=== PATIENT | female | born 1935 | race Caucasian/White ===

== ENCOUNTER 2018-10-08 16:38 | Observation (INO) ==
--- NOTE | 2018-10-08 17:44 | ED ---
HPI General Chief complaint: Eye Problems Stated complaint: dr costa/ eye pain Time Seen by Provider: 10/08/18 16:58 History of Present Illness HPI Narrative: 83 year old female with a past medical history of a-fib (not anticoagulated), Alzheimer's and skin cancer who presents to the ED for evaluation of right eyelid drooping and pain. Her symptoms started as a foreign body sensation in the right eye Friday that has progressed to a drooping lid last night. Her said he tried drops and tylenol but neither helped her symptoms. She denies any weakness, numbness/tingling, chest pain or shortness of breath. She was seen in a different hospital last night but left before getting the CT scan, unclear as to why. She is currently undergoing radiation therapy on a skin cancer on her right cheek. 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 is very adamant that the patient requires sedation or something to calm her down as she gets really anxious about CT scans of her head. Per report from the apron trimmer she also has had some ataxia. Related Data Home Medications Medication Instructions Recorded Confirmed Namenda 10/08/18 Allergies Allergy/AdvReac Type Severity Reaction Status Date / Time sulfamethoxazole Allergy Unknown unknown Verified 10/08/18 17:12 [From Bactrim] trimethoprim [From Bactrim] Allergy Unknown unknown Verified 10/08/18 17:12 Review of Systems ROS: all other systems reviewed are negative [facility] Medical History Medical History Afib (Acute) Alzheimers disease (Acute) Cancer of skin (Acute) Colorectal cancer (Acute) HTN (hypertension) (Acute) Social History Social History Substance History: No History of Abuse Smoking Status: Former smoker Tobacco Type: Cigarettes How Often Do You Have a Drink Containing Alcohol: 4 or more times a week Recent Travel in [facility] within the Last 8 Weeks: No Recent Out of Country Travel within the Last 8 Weeks: No Immunization History Tetanus Immunization: Unsure Exam Narrative Exam Narrative: GENERAL: Well-appearing in no distress. SKIN: Focused skin assessment warm/dry. Patient has what appears to be a skin lesion to the right cheek with erythema surrounding this lesion. HEAD: Atraumatic. Normocephalic. EYES: Pupils equal and round. No scleral icterus. No injection or drainage. Both pupils are dilated and did not respond currently (patient had her pupils dilated at the opthalmologist office). EOM appear to be intact. Patient does have drooping of the upper eyelid of the right eye ENT: No nasal bleeding or discharge. Mucous membranes pink and moist. Tongue is midline. No uvula deviation. NECK: Trachea midline. No JVD. CARDIOVASCULAR: Regular rate and rhythm. No murmur appreciated. RESPIRATORY: No accessory muscle use. Clear to auscultation. Breath sounds equal bilaterally. GASTROINTESTINAL: Abdomen soft, non-tender, nondistended. Hepatic and splenic margins not palpable. MUSCULOSKELETAL: No obvious deformities. No clubbing. No cyanosis. No edema. Full range of motion of the upper and lower extremities. 2+ pulses bilaterally. Patient does have slight ataxia noted with walking NEUROLOGICAL: Awake and alert. No obvious cranial nerve deficits. Motor grossly within normal limits. Normal speech. PSYCHIATRIC: Appropriate mood and affect; insight and judgment normal. Course Initial Documented Vital Signs Temperature 97.5 F L 10/08/18 16:50 Pulse Rate 68 10/08/18 16:50 Respiratory Rate 17 10/08/18 16:50 Blood Pressure 164/65 H 10/08/18 16:50 Pulse Oximetry 98 10/08/18 16:50 Last Documented Vital Signs Temperature 97.5 F L 10/08/18 16:50 Pulse Rate 65 10/08/18 20:09 Respiratory Rate 18 10/08/18 20:09 Blood Pressure 149/63 H 10/08/18 20:09 Pulse Oximetry 96 10/08/18 20:09 Medical Decision Making MDM Narrative Medical decision making narrative: 83 yo Female who presents to the ED for evaluation of right eye dilation as well as drooping of the eyelid. Patient was properly examined and was found to have signs and symptoms concerning for CVA. Labs and imaging were ordered. Labs and imaging that showed no sign of acute disease at this time. At this time patient will require further workup for possible CVA. She does have findings that are concerning for this. Fortunately patient is not a great historian has Alzheimer's and she had to be given Ativan to calm her down to get IV access as well as to get the CT scan. Case was discussed with my attending who agrees the patient should be admitted for further evaluation of possible CVA. Case discussed with Dr. Rapp who agrees admission to her service. Medical Screen Exam Complete: Yes Emergency Medical Condition: Yes Medical Records Medical records reviewed: Yes I reviewed the patient's medical records. Lab Data Lab results reviewed: Yes I reviewed the patient's lab results. Result diagrams: 10/08/18 18:14 10/08/18 18:14 Lab Results 10/08/18 10/08/18 10/08/18 Range/Units 18:14 18:14 18:14 WBC 11.1 H (4.0-11.0) th/mm3 RBC 4.01 (4.00-5.30) mil/mm3 Hgb 13.7 (11.6-15.3) gm/dL Hct 39.9 (35.0-46.0) % MCV 99.3 (80.0-100.0) fL MCH 34.1 H (27.0-34.0) pg MCHC 34.3 (32.0-36.0) % RDW 18.5 H (11.6-17.2) % Plt Count 215 (150-450) th/mm3 MPV 8.6 (7.0-11.0) fL Prelim Diff (Auto) Slide review pending Neut % (Auto) 66.5 (16.0-70.0) % Lymph % (Auto) 25.3 (9.0-44.0) % [place] % (Auto) 6.0 (0.0-8.0) % Eos % (Auto) 1.2 (0.0-4.0) % Baso % (Auto) 1.0 (0.0-2.0) % Neut # (Auto) 7.4 (1.8-7.7) th/mm3 Lymph # (Auto) 2.8 (1.0-4.8) th/mm3 [place] # (Auto) 0.7 (0.0-0.9) th/mm3 Eos # (Auto) 0.1 (0.0-0.4) th/mm3 Baso # (Auto) 0.1 (0.0-0.2) th/mm3 WBC Differential . Diff Scan Auto diff confirmed Differential Comment . Platelet Estimate Normal (Normal) Platelet Morphology Normal (Normal) Ovalocytes 1+ H (None) Keratocytes Occ H (None) PT 10.5 (9.8-11.6) sec INR 1.0 Ratio APTT 26.6 (23.4-31.7) sec Sodium 141 (136-145) meq/L Potassium 4.7 (3.5-5.1) meq/L Chloride 108 H (98-107) meq/L Carbon Dioxide 29.1 (21.0-32.0) meq/L Anion Gap 4 L (5-15) meq/L BUN 24 H (7-18) mg/dL Creatinine 1.18 H (0.50-1.00) mg/dL Estimated GFR 44 L (>89) mL/min Random Glucose 112 H (74-106) mg/dL Calcium 9.3 (8.5-10.1) mg/dL Total Bilirubin 0.6 (0.2-1.0) mg/dL AST 27 (15-37) U/L ALT 22 (10-53) U/L Alkaline Phosphatase 94 (45-117) U/L Troponin I (0.02-0.05) ng/mL Total Protein 7.7 (6.4-8.2) g/dL Albumin 4.1 (3.4-5.0) g/dL 10/08/18 Range/Units 18:14 WBC (4.0-11.0) th/mm3 RBC (4.00-5.30) mil/mm3 Hgb (11.6-15.3) gm/dL Hct (35.0-46.0) % MCV (80.0-100.0) fL MCH (27.0-34.0) pg MCHC (32.0-36.0) % RDW (11.6-17.2) % Plt Count (150-450) th/mm3 MPV (7.0-11.0) fL Prelim Diff (Auto) Neut % (Auto) (16.0-70.0) % Lymph % (Auto) (9.0-44.0) % [place] % (Auto) (0.0-8.0) % Eos % (Auto) (0.0-4.0) % Baso % (Auto) (0.0-2.0) % Neut # (Auto) (1.8-7.7) th/mm3 Lymph # (Auto) (1.0-4.8) th/mm3 [place] # (Auto) (0.0-0.9) th/mm3 Eos # (Auto) (0.0-0.4) th/mm3 Baso # (Auto) (0.0-0.2) th/mm3 WBC Differential Diff Scan Differential Comment Platelet Estimate (Normal) Platelet Morphology (Normal) Ovalocytes (None) Keratocytes (None) PT (9.8-11.6) sec INR Ratio APTT (23.4-31.7) sec Sodium (136-145) meq/L Potassium (3.5-5.1) meq/L Chloride (98-107) meq/L Carbon Dioxide (21.0-32.0) meq/L Anion Gap (5-15) meq/L BUN (7-18) mg/dL Creatinine (0.50-1.00) mg/dL Estimated GFR (>89) mL/min Random Glucose (74-106) mg/dL Calcium (8.5-10.1) mg/dL Total Bilirubin (0.2-1.0) mg/dL AST (15-37) U/L ALT (10-53) U/L Alkaline Phosphatase (45-117) U/L Troponin I Less than 0.02 L (0.02-0.05) ng/mL Total Protein (6.4-8.2) g/dL Albumin (3.4-5.0) g/dL Imaging Data Attestation: I personally reviewed and interpreted this imaging study as follows : Radiologist's impression: Head CT 10/08/18 17:12 CONCLUSION: 1. No acute intracranial abnormality. 2. Senescent changes with moderate periventricular ischemic white matter demyelination. . Chest X-Ray 10/08/18 18:16 CONCLUSION: 1. Mild diffuse interstitial prominence of unknown chronicity given lack of prior exams. This likely reflects senescent change. 2. Mild airspace disease at the left lung base, presumably atelectasis. Discharge Plan Discharge Order Discharge Orders: ED Use Only Admit Order (Routine); Ordered 10/08/18 Ordered By: Aaron Hu Physicians Team ED Provider: Hank Aragon ED Midlevel Provider: Aaron Hu Primary Care Provider: García Reaves Attending Provider: Najma Rapp Rxs /Orders / Referrals /Forms Prescriptions: No Action Namenda RF: 0 Discharge Interventions Interventions: Vital Signs Last Done: 10/08/18 20:09 Status ED Status: Admitted Observation Patient
--- NOTE | 2018-10-08 18:26 | CT ---
EXAM DATE: 10/08/2018 6:23 PM EST AGE/SEX: 83 years / Female INDICATIONS: Left facial and eye droop. Double vision. CLINICAL DATA: This is the patient's initial encounter. Patient reports that signs and symptoms have been present for 1 day and indicates a pain score of 0/10. MEDICAL/SURGICAL HISTORY: Alzheimer's disease. Carcinoma, rectal. Hypertension. A-fib. None. RADIATION DOSE: 56.35 CTDI (mGy) COMPARISON: No prior exams available for comparison. TECHNIQUE: CT of the head without contrast. Using automated exposure control and adjustment of the mA and/or kV according to patient size, radiation dose was kept as low as reasonably achievable to ob tain optimal diagnostic quality images. DICOM format image data is available electronically for revi ew and comparison. FINDINGS: Cerebrum: Prominent diffuse cerebral atrophy. The ventricles are normal for degree of atrophy. Moder ate periventricular white matter hypodensities. No evidence of midline shift, mass lesion, hemorrhage or acute infarction. No extraaxial fluid collections are seen. Posterior Fossa: The cerebellum and brainstem are intact. The 4th ventricle is midline. The cerebe llopontine angle is unremarkable. Extracranial: The visualized portion of the orbits is intact. Skull: The calvaria is intact. No evidence of skull fracture. CONCLUSION: 1. No acute intracranial abnormality. 2. Senescent changes with moderate periventricular ischemic white matter demyelination. . Electronically signed by: Zain Glez MD Board Certified Radiologist 10/08/2018 6:24 PM EST
[2018-10-08 18:32] LABS: Baso # (Auto) 0.1 th/mm3 (0.0-0.2); Eos # (Auto) 0.1 th/mm3 (0.0-0.4); Eos % (Auto) 1.2 % (0.0-4.0); Hematocrit 39.9 % (35.0-46.0); Hemoglobin 13.7 gm/dL (11.6-15.3); Lymph # (Auto) 2.8 th/mm3 (1.0-4.8); Lymph % (Auto) 25.3 % (9.0-44.0); Mean Corpuscular HGB Conc 34.3 % (32.0-36.0); Mean Corpuscular Hemoglobin 34.1 pg (27.0-34.0); Mean Corpuscular Volume 99.3 fL (80.0-100.0); Mean Platelet Volume 8.6 fL (7.0-11.0); Mono # (Auto) 0.7 th/mm3 (0.0-0.9); Neut # (Auto) 7.4 th/mm3 (1.8-7.7); Neut % (Auto) 66.5 % (16.0-70.0); Platelet Count 215 th/mm3 (150-450); Red Blood Count 4.01 mil/mm3 (4.00-5.30); Red Cell Distribution Width 18.5 % (11.6-17.2); White Blood Count 11.1 th/mm3 (4.0-11.0)
--- NOTE | 2018-10-08 18:37 | XR ---
EXAM DATE: 10/08/2018 6:26 PM EST AGE/SEX: 83 years / Female INDICATIONS: Chest pain. CLINICAL DATA: This is the patient's initial encounter. Patient reports that signs and symptoms have been present for 1 day and indicates a pain score of Nonresponsive. MEDICAL/SURGICAL HISTORY: Non-responsive. Non-responsive. COMPARISON: No prior exams available for comparison. FINDINGS: Mild diffuse interstitial prominence and mild patchy airspace disease at the left lung base. Cardiome diastinal contours are within normal limits given portable technique. Bony thorax is intact. CONCLUSION: 1. Mild diffuse interstitial prominence of unknown chronicity given lack of prior exams. This likely reflects senescent change. 2. Mild airspace disease at the left lung base, presumably atelectasis. Electronically signed by: Zain Glez MD Board Certified Radiologist 10/08/2018 6:35 PM EST
[2018-10-08 18:45] LABS: Activated Partial Thrombo Time 26.6 sec (23.4-31.7); Prothrombin Time 10.5 sec (9.8-11.6)
[2018-10-08 19:04] LABS: Alanine Aminotransferase 22 U/L (10-53)
[2018-10-08 19:05] LABS: Alkaline Phosphatase 94 U/L (45-117); Total Protein 7.7 g/dL (6.4-8.2)
[2018-10-08 19:07] LABS: Albumin 4.1 g/dL (3.4-5.0); Anion Gap 4 meq/L (5-15); Blood Urea Nitrogen 24 mg/dL (7-18); Calcium 9.3 mg/dL (8.5-10.1); Carbon Dioxide 29.1 meq/L (21.0-32.0); Chloride 108 meq/L (98-107); Glomerular Filtration Rate 44 mL/min (>89); Glucose,Random 112 mg/dL (74-106); Sodium 141 meq/L (136-145)
[2018-10-08 19:08] LABS: Aspartate Aminotransferase 27 U/L (15-37); Potassium 4.7 meq/L (3.5-5.1)
[2018-10-08 19:39] LABS: Ovalocytes 1+
[2018-10-08 19:40] LABS: Platelet Estimate Normal (Normal); Platelet Morphology Normal (Normal)
[2018-10-08] MEDS ORDERED: Insulin NovoLOG Aspart Correctional Sugar Inj SQ PRN (20:41)
[2018-10-08] MEDS ORDERED: Dextrose 50% in Water 50 ML Vial IV.PUSH PRN (20:41)
--- NOTE | 2018-10-08 20:51 | P.HPIM ---
History of Present Illness Primary Care Physician: García Jean Paul 83-year-old female with a past medical history significant for Alzheimer's dementia, hypertension and a history of colon cancer presents to the emergency department at the recommendation of her business liaison officer for right eye ptosis and visual changes. The patient is a poor historian however her is bedside who is her primary caregiver and he provides the history. He states that started Friday night she started to have drooping of the right eye. She complained of visual changes with blurry vision and double vision that is intermittent. He also reports she has been having gait disturbances and that she has been off balance since that time. She has no history of a fall. No slurred speech. There has been some mild increase in her baseline confusion. No facial droop or slurred speech. The patient denies any chest pain or shortness of breath. No abdominal pain. No nausea/vomiting/diarrhea. No fever /chills. Review of Systems Review of Systems: all other systems reviewed are negative [facility] Medical History Medical History Afib (Acute) Alzheimers disease (Acute) Cancer of skin (Acute) Colorectal cancer (Acute) HTN (hypertension) (Acute) Surgical History Surgical History History of colon surgery (Acute) Family History Family History Other Coronary artery disease Dementia Social History Social History Substance History: No History of Abuse Smoking Status: Former smoker Tobacco Type: Cigarettes How Often Do You Have a Drink Containing Alcohol: 4 or more times a week Recent Travel in [facility] within the Last 8 Weeks: No Recent Out of Country Travel within the Last 8 Weeks: No Immunization History Tetanus Immunization: Unsure Medications and Allergies Allergies Allergy/AdvReac Type Severity Reaction Status Date / Time sulfamethoxazole Allergy Unknown unknown Verified 10/08/18 17:12 [From Bactrim] trimethoprim [From Bactrim] Allergy Unknown unknown Verified 10/08/18 17:12 Home Medications Medication Instructions Recorded Confirmed Type Namenda 10/08/18 History Active Medications: Active Medications Aspirin (Aspirin Chew) 162 mg PO DAILY GINNY Dextrose (D50w Vial) 50 ml IV.PUSH UNSCH PRN PRN Reason: per Hypoglycemic Protocol Glucagon (Glucagon Inj) 1 mg OTHER UNSCH PRN PRN Reason: per Hypoglycemic Protocol Heparin Sodium (Porcine) (Heparin Inj) 5,000 units SQ Q12H [facility] Sodium Chloride (Ns Inj) 1,000 mls @ 70 mls/hr IV.CONT .[id number] [facility] Insulin Aspart (Novolog Insulin Correctional Sugar Inj) 0 unit SQ ACHS PRN; Protocol PRN Reason: Per Protocol Physical Exam Vital signs: Vital Signs 10/08/18 16:50 10/08/18 16:54 10/08/18 20:09 Temperature 97.5 F L Pulse Rate 68 65 65 Respiratory Rate 17 20 18 Blood Pressure 164/65 H 101/77 149/63 H Pulse Oximetry 98 100 96 Intake & Output 10/08/18 10/08/18 10/09/18 06:59 18:59 06:59 Weight 63.049 kg Narrative: Gen.: No acute distress Head: Normocephalic. Atraumatic. EENT: Pupils equal round and reactive to light. Nose without drainage. Airway intact. Throat without injection. Cardiovascular: Regular rate and rhythm. No murmurs, rubs or gallops. Respiratory: Lungs clear to auscultation bilaterally. No wheezes or rhonchi. Abdomen: Soft, nontender, nondistended. No peritoneal signs. Musculoskeletal: No gross deformities. No edema. Skin: No obvious rashes or erythema. Neuro: Right eye ptosis. Unable to ascertain visual rossi/acuity as patient status post Ativan dosing and unable to answer questions pertaining to her vision. Remainder of cranial nerves intact. Strength 5/5 throughout. Confusion which her states is baseline. Results Labs CBC & Chem 7: 10/08/18 18:14 10/08/18 18:[address] 10/08/18 17:12 CONCLUSION: 1. No acute intracranial abnormality. 2. Senescent changes with moderate periventricular ischemic white matter demyelination. . Chest X-Ray 10/08/18 18:16 CONCLUSION: 1. Mild diffuse interstitial prominence of unknown chronicity given lack of prior exams. This likely reflects senescent change. 2. Mild airspace disease at the left lung base, presumably atelectasis. Caprini VTE Risk Assessment Caprini VTE Risk Assessment: Moderate/High Risk (score >= 2) Caprini Risk Assessment Model: Point Value = 1 Point Value = 2 Point Value = 3 Point Value = 5 Age 41-60 Minor surgery BMI > 25 kg/m2 Swollen legs Varicose veins or History of unexplained or recurrent spontaneous Oral contraceptives or hormone replacement Sepsis (< 1 month) Serious lung disease, including pneumonia (< 1 month) Abnormal pulmonary function Acute myocardial infarction Congestive heart failure (< 1 month) History of inflammatory bowel disease Medical patient at bed rest Age 61-74 Arthroscopic surgery Major open surgery (> 45 min) Laparoscopic surgery (> 45 min) Malignancy Confined to bed (> 72 hours) Immobilizing plaster cast Central venous access Age >= 75 History of VTE Family history of VTE Factor V Leiden Prothrombin [id number] Lupus anticoagulant Anticardiolipin antibodies Elevated serum homocysteine Heparin-induced thrombocytopenia Other congenital or acquired thrombophilia Stroke (< 1 month) Elective arthroplasty Hip, pelvis, or leg fracture Acute spinal cord injury (< 1 month) Prophylaxis Regimen: Total Risk Factor Score Risk Level Prophylaxis Regimen 0-1 Low Early ambulation 2 Moderate Order ONE of the following: *Sequential Compression Device (SCD) *Heparin 5000 units SQ BID 3-4 Higher Order ONE of the following medications: *Heparin 5000 units SQ TID *Enoxaparin/Lovenox 40 mg SQ daily (WT < 150 kg, CrCl > 30 mL/min) *Enoxaparin/Lovenox 30 mg SQ daily (WT < 150 kg, CrCl > 10-29 mL/min) *Enoxaparin/Lovenox 30 mg SQ BID (WT < 150 kg, CrCl > 30 mL/min) AND/OR *Sequential Compression Device (SCD) 5 or more Highest Order ONE of the following medications: *Heparin 5000 units SQ TID (Preferred with Epidurals) *Enoxaparin/Lovenox 40 mg SQ daily (WT < 150 kg, CrCl > 30 mL/min) *Enoxaparin/Lovenox 30 mg SQ daily (WT < 150 kg, CrCl > 10-29 mL/min) *Enoxaparin/Lovenox 30 mg SQ BID (WT < 150 kg, CrCl > 30 mL/min) AND *Sequential Compression Device (SCD) Assessment and Plan Plan Assessment/plan: 1. ? CVA Head CT negative for acute process Brain MRA, MRI pending Carotid ultrasound pending Echo pending Neurology consulted, appreciate assistance Aspirin 2. Hypertension/dementia Continue home medications once reconciled 3. Acute kidney injury Patient with creatinine of 1.18, baseline unknown Likely chronic component Monitor renal function FEN N.p.o. NS at 70 cc/hour Electrolytes: Monitor and replete as needed Heparin
--- NOTE | 2018-10-08 22:14 | MR ---
EXAM DATE: 10/08/2018 10:10 PM EST AGE/SEX: 83 years / Female INDICATIONS: CVA. Possible stroke four days ago. CLINICAL DATA: This is the patient's initial encounter. Patient reports that signs and symptoms have been present for 4 - 6 days and indicates a pain score of 3/10. MEDICAL/SURGICAL HISTORY: Hypertension. Dementia. Skin and colon cancer. . Colon sx. [place] [facility] CONTRAST, 10/08/2018. . TECHNIQUE: 3D [id number] MRA was performed. Source images, multiplanar STS MIP, and 3D volum e MIP reconstructions were reviewed. FINDINGS: There is excellent visualization of the major intracranial arteries out to the second-order branch ve ssels. There is no evidence for aneurysm, vessel truncation or stenosis, and no evidence for vascula r malformation. CONCLUSION: 1. Negative MRA [place] ([place] [facility] [place]) non contrast. Electronically signed by: Zain Glez MD Board Certified Radiologist 10/08/2018 10:12 PM ANA MARIA Cortez
--- NOTE | 2018-10-08 22:18 | MR ---
EXAM DATE: 10/08/2018 10:14 PM EST AGE/SEX: 83 years / Female INDICATIONS: CVA. CLINICAL DATA: This is the patient's initial encounter. Patient reports that signs and symptoms have been present for 4 - 6 days and indicates a pain score of 6/10. MEDICAL/SURGICAL HISTORY: Hypertension. Dementia. Skin and colon cancer. . Colon sx. COMPARISON: [facility], MRA HEAD W/O CONTRAST, 10/08/2018. . TECHNIQUE: Multiplanar, multisequence examination of the brain was performed without contrast. FINDINGS: Cerebrum: Moderate diffuse cerebral atrophy. The ventricles are normal for age. No evidence of midl ine shift, mass lesion, hemorrhage or acute infarction. No extraaxial fluid collections are seen. T he pituitary gland and suprasellar cistern are normal in configuration. White Matter: Mild to moderate periventricular white matter T2 prolongation. Posterior Fossa: The cerebellum and brainstem are intact. The 4th ventricle is midline. The cerebel lopontine angle is unremarkable. The cerebellar tonsils are normal in position. Diffusion Imaging: No focal areas of restricted diffusion are seen. No evidence of acute infarction . Extracranial: The visualized portions of the orbits and paranasal sinuses are unremarkable. CONCLUSION: 1. Senescent changes with moderate periventricular ischemic white matter demyelination. 2. Otherwise, unremarkable MRI examination of the brain. Specifically, no evidence for acute infarct ion. Electronically signed by: Zain Glez MD Board Certified Radiologist 10/08/2018 10:16 PM ANA MARIA Cortez
[2018-10-08 23:19] LABS: Chol/HDL Ratio 6.04 Ratio; HDL Cholesterol 57.9 mg/dL (40.0-60.0)
--- NOTE | 2018-10-08 23:32 | US ---
EXAM DATE: 10/08/2018 11:20 PM EST AGE/SEX: 83 years / Female INDICATIONS: Cerebral vascular accident. CLINICAL DATA: This is the patient's initial encounter. Patient reports that signs and symptoms have been present for 1 day and indicates a pain score of 0/10. MEDICAL/SURGICAL HISTORY: Hypertension. Carcinoma, skin cancer. A-FIB. Alzheimer's. Colorectal cancer. . Colon surgery. COMPARISON: No prior exams available for comparison. VELOCITY PARAMETERS: ICA/CCA Ratio: Right 1.5 , Left 1.1 ICA: Right 115 cm/sec, Left 71 cm/sec CCA: Right 79 cm/sec, Left 81 cm/sec ECA: Right 68 cm/sec, Left 57 cm/sec Vertebral: Right 47 cm/sec antegrade, Left 24 cm/sec antegrade FINDINGS: Right Carotid: No significant plaque is visualized.The waveforms are within normal limits. Left Carotid: No significant plaque is visualized. The waveforms are within normal limits. Other: None. CONCLUSION: No evidence of flow-limiting carotid stenosis. Electronically signed by: Ric Bundy MD Board Certified Radiologist 10/08/2018 11:30 PM EST
[2018-10-08] MEDS: Sod Chloride 0.9% Inj 1,000 ML IV.CONT SCH (23:45)
[2018-10-08] MEDS: Heparin - SQ 10,000 UNITS/ML Vial SQ SCH (23:55)
[2018-10-09 03:26] VITALS: RESP 16
[2018-10-09 07:55] VITALS: O2SAT 98
--- NOTE | 2018-10-09 09:18 | P.CONNEU ---
History of Present Illness Service: Neurology Primary Care Provider: García Reaves Chief Complaint: Ataxia, History of Present Illness: 83-year-old female admitted for ocular abnormalities and gait imbalance. Began a couple days ago according to her at bedside. Having difficulty with ambulation and developed right eye droop. Patient has underlying dementia is a poor historian. In addition received sedative for MRI and is somewhat somnolent this morning. He does not recollect her complaining of any severe headache. No known history of cerebral aneurysm. No recent sick contacts, no fever, no history of diabetes or any neuromuscular junction disorder. Review of Systems All other systems reviewed negative except as stated in HPI [facility] - History History Provided By: Family Member - Medical History Medical History: Medical History (Last Reviewed 10/09/18 @ 08:59 by Susanne Hodgson) Afib Alzheimers disease Cancer of skin Colorectal cancer HTN (hypertension) - Surgical History Surgical History: Surgical History (Last Reviewed 10/09/18 @ 08:59 by Susanne Hodgson) History of colon surgery - Family History Family History: Family History (Last Reviewed 10/09/18 @ 08:59 by Susanne Hodgson) Other Coronary artery disease Dementia - Tobacco History Second Hand Smoke Exposure: No Tobacco Use In Past 30 Days: No Smoking Status: Former smoker Tobacco Type: Cigarettes - Alcohol History How Often Do You Have a Drink Containing Alcohol: 4 or more times a week - Substance Use History Substance History: Active Abuse - Substance Use Type Alcohol Type: wine Status: Active Route Used: By Mouth Frequency: 2 glasses of wine per nigh - Travel History Recent Travel in the [facility] Within the Last 8 Weeks: No Recent Travel Out of the Country Within the Last 8 Weeks: No - Immunization History Tetanus Immunization: Unsure Medications and Allergies Active Medications: Active Medications Aspirin (Aspirin Chew) 162 mg PO DAILY [facility] Dextrose (D50w Vial) 50 ml IV.PUSH UNSCH PRN PRN Reason: per Hypoglycemic Protocol Glucagon (Glucagon Inj) 1 mg OTHER UNSCH PRN PRN Reason: per Hypoglycemic Protocol Heparin Sodium (Porcine) (Heparin Inj) 5,000 units SQ Q12H [facility] Last Admin: 10/08/18 23:55 Dose: 5,000 units Sodium Chloride (Ns Inj) 1,000 mls @ 70 mls/hr IV.CONT .[id number] [facility] Last Admin: 10/08/18 23:45 Dose: 70 mls/hr Insulin Aspart (Novolog Insulin Correctional Sugar Inj) 0 unit SQ ACHS PRN; Protocol PRN Reason: Per Protocol Allergies Allergy/AdvReac Type Severity Reaction Status Date / Time sulfamethoxazole Allergy Unknown unknown Verified 10/08/18 17:12 [From Bactrim] trimethoprim [From Bactrim] Allergy Unknown unknown Verified 10/08/18 17:12 Home Medications Medication Instructions Recorded Confirmed Type Namenda 10/08/18 History Exam Vital signs: Vital Signs 10/08/18 16:50 10/08/18 16:54 10/08/18 20:09 Temperature 97.5 F L Pulse Rate 68 65 65 Respiratory Rate 17 20 18 Blood Pressure 164/65 H 101/77 149/63 H Pulse Oximetry 98 100 96 10/08/18 22:56 10/09/18 03:21 10/09/18 07:48 Temperature 97.5 F L 97.3 F L 97.9 F Pulse Rate 69 54 L 61 Respiratory Rate 12 16 16 Blood Pressure 169/74 H 145/117 H 140/98 H Pulse Oximetry 96 95 98 Intake & Output 10/08/18 10/09/18 10/09/18 18:59 06:59 18:59 Weight 63.049 kg 63.049 kg Other: Date of Last Bowel Movement 10/08/18 Weight On Admission 63.049 kg Narrative: GENERAL: in NAD, SKIN: Warm and dry. Right cheek lesion apparently skin cancer with radiation there. HEAD: Atraumatic. Normocephalic. EYES: Anisocoria ENT: No nasal bleeding or discharge. NECK: Trachea midline. No JVD. CARDIOVASCULAR: Regular rate and rhythm. RESPIRATORY: No accessory muscle use. GASTROINTESTINAL: Abdomen soft, non-tender, nondistended. MUSCULOSKELETAL: Extremities without clubbing, cyanosis, or edema. No obvious deformities. NEUROLOGICAL: Drowsy arousable will drift back to sleep challenging exam. Appears to have right ptosis right ophthalmoplegia with anisocoria OD approximately 4-5 mm OS approximately 2 mm both sluggishly reactive. Limited extraocular movement with doll's eye maneuver and independently should difficulty looking to the left or right however was sleepy and comprehension may also be a factor. No facial asymmetry neck supple moving all 4 extremity gravity without difficulty no neglect plantarflex her no clonus peer PSYCHIATRIC: Calm Results - Labs CBC & Chem 7: 10/08/18 18:14 10/08/18 18:14 Labs: Laboratory Results - last 24 hr 10/08/18 10/08/18 10/08/18 18:14 18:14 18:14 WBC 11.1 H RBC 4.01 Hgb 13.7 Hct 39.9 MCV 99.3 MCH 34.1 H MCHC 34.3 RDW 18.5 H Plt Count 215 MPV 8.6 Prelim Diff (Auto) Slide review pending Neut % (Auto) 66.5 Lymph % (Auto) 25.3 [place] % (Auto) 6.0 Eos % (Auto) 1.2 Baso % (Auto) 1.0 Neut # (Auto) 7.4 Lymph # (Auto) 2.8 [place] # (Auto) 0.7 Eos # (Auto) 0.1 Baso # (Auto) 0.1 WBC Differential . Diff Scan Auto diff confirmed Differential Comment . Platelet Estimate Normal Platelet Morphology Normal Ovalocytes 1+ H Keratocytes Occ H PT 10.5 INR 1.0 APTT 26.6 Sodium 141 Potassium 4.7 Chloride 108 H Carbon Dioxide 29.1 Anion Gap 4 L BUN 24 H Creatinine 1.18 H Estimated GFR 44 L POC Glucose Random Glucose 112 H Hemoglobin A1c Calcium 9.3 Total Bilirubin 0.6 AST 27 ALT 22 Alkaline Phosphatase 94 Troponin I Total Protein 7.7 Albumin 4.1 Triglycerides Cholesterol LDL Cholesterol, Calc HDL Cholesterol Cholesterol/HDL Ratio 10/08/18 10/08/18 10/08/18 18:14 18:14 18:14 WBC RBC Hgb Hct MCV MCH MCHC RDW Plt Count MPV Prelim Diff (Auto) Neut % (Auto) Lymph % (Auto) [place] % (Auto) Eos % (Auto) Baso % (Auto) Neut # (Auto) Lymph # (Auto) [place] # (Auto) Eos # (Auto) Baso # (Auto) WBC Differential Diff Scan Differential Comment Platelet Estimate Platelet Morphology Ovalocytes Keratocytes PT INR APTT Sodium Potassium Chloride Carbon Dioxide Anion Gap BUN Creatinine Estimated GFR POC Glucose Random Glucose Hemoglobin A1c Cancelled Calcium Total Bilirubin AST ALT Alkaline Phosphatase Troponin I Less than 0.02 L Total Protein Albumin Triglycerides 265 H Cholesterol 350 H LDL Cholesterol, Calc 239 H HDL Cholesterol 57.9 Cholesterol/HDL Ratio 6.04 10/09/18 00:09 WBC RBC Hgb Hct MCV MCH MCHC RDW Plt Count MPV Prelim Diff (Auto) Neut % (Auto) Lymph % (Auto) [place] % (Auto) Eos % (Auto) Baso % (Auto) Neut # (Auto) Lymph # (Auto) [place] # (Auto) Eos # (Auto) Baso # (Auto) WBC Differential Diff Scan Differential Comment Platelet Estimate Platelet Morphology Ovalocytes Keratocytes PT INR APTT Sodium Potassium Chloride Carbon Dioxide Anion Gap BUN Creatinine Estimated GFR POC Glucose 101 Random Glucose Hemoglobin A1c Calcium Total Bilirubin AST ALT Alkaline Phosphatase Troponin I Total Protein Albumin Triglycerides Cholesterol LDL Cholesterol, Calc HDL Cholesterol Cholesterol/HDL Ratio - Imaging Impressions Carotid Doppler Study 10/08/18 00:00 CONCLUSION: No evidence of flow-limiting carotid stenosis. Head MRI 10/08/18 00:00 CONCLUSION: 1. Senescent changes with moderate periventricular ischemic white matter demyelination. 2. Otherwise, unremarkable MRI examination of the brain. Specifically, no evidence for acute infarction. Head MRA 10/08/18 00:00 CONCLUSION: 1. Negative MRA Cow ([place]) non contrast. Head CT 10/08/18 17:12 CONCLUSION: 1. No acute intracranial abnormality. 2. Senescent changes with moderate periventricular ischemic white matter demyelination. . Chest X-Ray 10/08/18 18:16 CONCLUSION: 1. Mild diffuse interstitial prominence of unknown chronicity given lack of prior exams. This likely reflects senescent change. 2. Mild airspace disease at the left lung base, presumably atelectasis. 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, complete Code(s): H49.00 - Third [oculomotor] nerve palsy, unspecified eye Status: Acute Current Visit: Yes (3) Atrial fibrillation Code(s): I48.91 - Unspecified atrial fibrillation Status: Acute Current Visit: Yes (4) Alzheimer's dementia Code(s): G30.9 - Alzheimer's disease, unspecified; F02.80 - Dementia in other diseases classified elsewhere without behavioral disturbance Status: Acute Current Visit: Yes (5) Skin cancer Code(s): C44.90 - Unspecified malignant neoplasm of skin, unspecified Status: Acute Current Visit: Yes - Review/Management Plan: Challenging exam this morning due to sedation in addition to underlying dementia. However she does appear to have at the least right 3rd nerve palsy with ptosis ophthalmoplegia and anisocoria MRI brain scan reviewed no obvious stroke noted. Although she could have a tiny infarct in the dorsal midbrain which could cause some of these findings. She does not appear to have any significant weakness therefore stroke is lesser likely. Additional anatomical areas of localization would include the subarachnoid space cavernous sinus and orbital apex. Her ataxia is likely related to diplopia. Stover Aranda syndrome is another possibility as it is ischemia to the right 3rd nerve. As she has anisocoria neuro muscle junction disorder such as myasthenia gravis is less likely. In addition subacute onset mainly unilateral findings at present. She is also had recent recent radiation treatment to the right side of her face. Although less likely radiation induced cranial neuropathy is a possibility in addition to tumor invasion. However for these possibilities would expect more slow progressive nature of her symptoms. MRI brain negative for aneurysm Recommendation Would obtain a CTA brain there is an additional study to exclude an aneurysm although her GFR is depressed Hold aspirin for possible lumbar puncture Check ESR CRP Obtain a better exam when she is off sedation Follow exam
[2018-10-09] MEDS: Heparin - SQ 10,000 UNITS/ML Vial SQ SCH (09:59)
[2018-10-09] MEDS ORDERED: ALPRAZolam 0.25 MG Tablet PO PRN (10:27)
[2018-10-09 10:59] LABS: Bacteria,Urine Rare /hpf; Bilirubin,Urine Negative (Negative); Clarity,Urine Clear (Clear); Color,Urine Yellow (Yellw/Straw); Glucose,Urine (UA) Negative (Negative); Hyaline Casts,Urine 1 /lpf (0-3); Leukocyte Esterase,Urine Negative (Negative); Mucus,Urine Few /lpf (Occasional); Nitrite,Urine Negative (Negative); Specific Gravity,Urine 1.021 (1.002-1.035); Squamous Epithelial Cell,Urine 1 /hpf (0-5)
[2018-10-09 11:27] VITALS: BP 185/77; PULSE 64; TEMP 97.7
[2018-10-09] MEDS: Sod Chloride 0.9% Inj 1,000 ML IV.CONT SCH (12:02)
--- NOTE | 2018-10-09 12:08 | CT ---
EXAM DATE: 10/09/2018 11:43 AM EST AGE/SEX: 83 years / Female INDICATIONS: Chest pain. CLINICAL DATA: This is the patient's initial encounter. Patient reports that signs and symptoms have been present for 1 day and indicates a pain score of 4/10. MEDICAL/SURGICAL HISTORY: Alzheimer's disease. Hypertension. Carcinoma, skin cancer. . Colon surg [place]. RADIATION DOSE: 7.51 CTDI (mGy) COMPARISON: C, CHEST 1V SINGLE AP, 10/08/2018. . TECHNIQUE: Multiple contiguous axial images were obtained through the chest without contrast. Image s were obtained in suspended respiration using multiple row detector helical technique. Using automa rigoberto exposure control and adjustment of the mA and/or kV according to patient size, radiation dose was kept as low as reasonably achievable to obtain optimal diagnostic quality images. DICOM format imag e data is available electronically for review and comparison. FINDINGS: Lungs: The upper lungs are clear. There is mild bilateral interstitial infiltrates in the lower lung s and costophrenic angles without focal areas of consolidation. No nodules. No evidence of pneumothor ax. Mediastinum: There is good visualization of the great vessels of the middle mediastinum. No evidenc e of mediastinal or hilar adenopathy/mass. Pleurae: No evidence of focal thickening or pleural effusion. Axillae: Unremarkable. Bony Structures: Unremarkable. Miscellaneous: The examination was extended to include the upper abdomen, and both adrenal glands ar e normal in size and configuration. CONCLUSION: 1. Mild bilateral lower lung interstitial infiltrates without consolidation. Electronically signed by: Brock Avitia MD Board Certified Radiologist 10/09/2018 12:06 PM EST
--- NOTE | 2018-10-09 13:03 | P.DS ---
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 When she arrived to the ER a stroke workup was initiated, CT of the brain, MRI of the brain, MRA of the brain, CT of the chest, also no significant findings. Pertinent history includes skin cancer which is affecting her right eye, she has been undergoing multiple rounds of radiation to her right eye to treat her skin cancer. It is very likely that these multiple rounds of radiation have caused a localized nerve irritation which is resulting in the clinical picture we are seeing. In the context of a normal collection of imaging and otherwise asymptomatic patient, the problem does not seem serious enough to keep her hospitalized. I will give her careful instructions for following up if anything worsens, otherwise she should do a trial of a Medrol Dosepak to treat for underlying post radiation inflammation, follow-up early next week with her slunk skin curer to see if symptoms are improving. She is stable for discharge today. Time Spent with Patient Total time spent providing and/or coordinating discharge services: Less than 30 minutes Quality: VTE Deep Vein Thrombosis/Pulmonary Embolism Present on Admission: No Results Pending studies at discharge: Pending at discharge 10/09/18 Cytology [PTH] Stat Labs on day of discharge: Labs from last 24 hours 10/09/18 10/09/18 10/08/18 08:40 00:09 18:14 WBC RBC Hgb Hct MCV MCH MCHC RDW Plt Count MPV Prelim Diff (Auto) Neut % (Auto) Lymph % (Auto) [place] % (Auto) Eos % (Auto) Baso % (Auto) Neut # (Auto) Lymph # (Auto) [place] # (Auto) Eos # (Auto) Baso # (Auto) WBC Differential Diff Scan Differential Comment Platelet Estimate Platelet Morphology Ovalocytes Keratocytes PT INR APTT Sodium Potassium Chloride Carbon Dioxide Anion Gap BUN Creatinine Estimated GFR POC Glucose 101 Random Glucose Hemoglobin A1c Calcium Total Bilirubin AST ALT Alkaline Phosphatase Troponin I Total Protein Albumin Triglycerides 265 H Cholesterol 350 H LDL Cholesterol, Calc 239 H HDL Cholesterol 57.9 Cholesterol/HDL Ratio 6.04 Urine Color Yellow Urine Clarity Clear Urine pH 5.0 Ur Specific [place] 1.021 Urine Protein Negative Urine Glucose (UA) Negative Urine Ketones Trace H Urine Occult Blood Moderate H Urine Nitrate Negative Urine Bilirubin Negative Urine Urobilinogen Less than 2 Ur Leukocyte Esterase Negative Urine RBC 7 H Urine WBC 10 H Ur Squamous Epith Cells 1 Urine Bacteria Rare H Hyaline Casts 1 Urine Mucus Few H Micro UA Comment Culture indicated Ur Microscopic Review Not Reportable Urine Culture Comments Culture indicated 10/08/18 10/08/18 10/08/18 18:14 18:14 18:14 WBC RBC Hgb Hct MCV MCH MCHC RDW Plt Count MPV Prelim Diff (Auto) Neut % (Auto) Lymph % (Auto) [place] % (Auto) Eos % (Auto) Baso % (Auto) Neut # (Auto) Lymph # (Auto) [place] # (Auto) Eos # (Auto) Baso # (Auto) WBC Differential Diff Scan Differential Comment Platelet Estimate Platelet Morphology Ovalocytes Keratocytes PT INR APTT Sodium 141 Potassium 4.7 Chloride 108 H Carbon Dioxide 29.1 Anion Gap 4 L BUN 24 H Creatinine 1.18 H Estimated GFR 44 L POC Glucose Random Glucose 112 H Hemoglobin A1c Cancelled Calcium 9.3 Total Bilirubin 0.6 AST 27 ALT 22 Alkaline Phosphatase 94 Troponin I Less than 0.02 L Total Protein 7.7 Albumin 4.1 Triglycerides Cholesterol LDL Cholesterol, Calc HDL Cholesterol Cholesterol/HDL Ratio Urine Color Urine Clarity Urine pH Ur Specific [place] Urine Protein Urine Glucose (UA) Urine Ketones Urine Occult Blood Urine Nitrate Urine Bilirubin Urine Urobilinogen Ur Leukocyte Esterase Urine RBC Urine WBC Ur Squamous Epith Cells Urine Bacteria Hyaline Casts Urine Mucus Micro UA Comment Ur Microscopic Review Urine Culture Comments 10/08/18 10/08/18 18:14 18:14 WBC 11.1 H RBC 4.01 Hgb 13.7 Hct 39.9 MCV 99.3 MCH 34.1 H MCHC 34.3 RDW 18.5 H Plt Count 215 MPV 8.6 Prelim Diff (Auto) Slide review pending Neut % (Auto) 66.5 Lymph % (Auto) 25.3 [place] % (Auto) 6.0 Eos % (Auto) 1.2 Baso % (Auto) 1.0 Neut # (Auto) 7.4 Lymph # (Auto) 2.8 [place] # (Auto) 0.7 Eos # (Auto) 0.1 Baso # (Auto) 0.1 WBC Differential . Diff Scan Auto diff confirmed Differential Comment . Platelet Estimate Normal Platelet Morphology Normal Ovalocytes 1+ H Keratocytes Occ H PT 10.5 INR 1.0 APTT 26.6 Sodium Potassium Chloride Carbon Dioxide Anion Gap BUN Creatinine Estimated GFR POC Glucose Random Glucose Hemoglobin A1c Calcium Total Bilirubin AST ALT Alkaline Phosphatase Troponin I Total Protein Albumin Triglycerides Cholesterol LDL Cholesterol, Calc HDL Cholesterol Cholesterol/HDL Ratio Urine Color Urine Clarity Urine pH Ur Specific [place] Urine Protein Urine Glucose (UA) Urine Ketones Urine Occult Blood Urine Nitrate Urine Bilirubin Urine Urobilinogen Ur Leukocyte Esterase Urine RBC Urine WBC Ur Squamous Epith Cells Urine Bacteria Hyaline Casts Urine Mucus Micro UA Comment Ur Microscopic Review Urine Culture Comments Impressions ITS Impressions Carotid Doppler Study 10/08/18 00:00 CONCLUSION: No evidence of flow-limiting carotid stenosis. Head MRI 10/08/18 00:00 CONCLUSION: 1. Senescent changes with moderate periventricular ischemic white matter demyelination. 2. Otherwise, unremarkable MRI examination of the brain. Specifically, no evidence for acute infarction. Head MRA 10/08/18 00:00 CONCLUSION: 1. Negative MRA [place] ([place]) non contrast. Head CT 10/08/18 17:12 CONCLUSION: 1. No acute intracranial abnormality. 2. Senescent changes with moderate periventricular ischemic white matter demyelination. . Chest X-Ray 10/08/18 18:16 CONCLUSION: 1. Mild diffuse interstitial prominence of unknown chronicity given lack of prior exams. This likely reflects senescent change. 2. Mild airspace disease at the left lung base, presumably atelectasis. Chest CT 10/09/18 00:00 CONCLUSION: 1. Mild bilateral lower lung interstitial infiltrates without consolidation. Discharge Plan Discharge Disposition Patient Disposition: 01 Discharge Home Discharge Condition Condition: Good Discharge Order Discharge Orders: Discharge Order (Routine); Ordered 10/09/18 Ordered By: Dileep Stover Discharge Details Anticipated Discharge Date: 02/15/19 Physicians Team Primary Care Provider: García Reaves Attending Provider: Dileep Stover Other Providers: Chandu Messina Rxs /Orders / Referrals /Forms Prescriptions: New methylprednisolone [Medrol (Paolo)] 4 mg tablets,dose pack See Label Instructions PO PER PKG DIR Qty: 21 RF: 0 Continue Namenda RF: 0 Referrals: García Reaves DO [Primary Care Provider] - See Instructions Discharge Interventions Interventions: Discharge Planning - Case Management Last Done: 10/09/18 11:20 Status ED Status: Left Department
--- NOTE | 2018-10-09 14:36 | ECG ---
Date Performed: 10/08/2018 Time Performed: 23:16:14 PTAGE: 83 years EKG: Sinus rhythm NORMAL ECG NO PREVIOUS TRACING DOCTOR: Kalie Campbell Interpretating Date/Time 10/09/2018 14:31:31
--- NOTE | 2018-10-09 17:15 | ECHRPT ---
Indication: CVA/TIA CONCLUSIONS Normal left ventricular size. Mild concentric left ventricular hypertrophy. The left ventricular systolic function is grossly normal on limited imaging. Mitral annular calcification is present. There is mild tricuspid valve regurgitation. The estimated pulmonary arterial pressure is 56.8 mmHg. Trivial pulmonary valve regurgitation. A prominent epicardial fat pad is present. BP: / HR: Rhythm: Sinus MEASUREMENTS (Male / Female) Normal Values Technical Quality:Fair 2D ECHO LV Diastolic Diameter PLAX 5.0 cm 4.2 - 5.9 / 3.9 - 5.3 cm LV Systolic Diameter PLAX 3.5 cm IVS Diastolic Thickness 1.1 cm 0.6 - 1.0 / 0.6 - 0.9 cm LVPW Diastolic Thickness 1.1 cm 0.6 - 1.0 / 0.6 - 0.9 cm LV Relative Wall Thickness 0.4 RV Internal Dim ED PLAX 1.8 cm LVOT Diameter 1.8 cm Aortic Root Diameter 2.7 cm LA Systolic Diameter LX 3.7 cm 3.0 - 4.0 / 2.7 - 3.8 cm DOPPLER AV Peak Velocity 112.0 cm/s AV Peak Gradient 5.0 mmHg AV Mean Gradient 3.0 mmHg AV Velocity Time Integral 25.3 cm LVOT Peak Velocity 45.1 cm/s LVOT Peak Gradient 0.8 mmHg LVOT Velocity Time Integral 11.8 cm AV Area Cont Eq vti 1.2 cm AV Area Cont Eq pk 1.0 cm Mitral E Point Velocity 77.5 cm/s Mitral A Point Velocity 51.8 cm/s Mitral E to A Ratio 1.5 LV E' Lateral Velocity 10.9 cm/s Mitral E to LV E' Lateral Ratio 7.1 LV E' Septal Velocity 7.5 cm/s Mitral E to LV E' Septal Ratio 10.3 TR Peak Velocity 342.0 cm/s TR Peak Gradient 47.0 mmHg Right Atrial Pressure 10.0 mmHg Pulmonary Artery Systolic Pressu 56.8 mmHg Right Ventricular Systolic Press 56.8 mmHg PV Peak Velocity 45.9 cm/s PV Peak Gradient 0.8 mmHg FINDINGS LEFT VENTRICLE Normal left ventricular size. Mild concentric left ventricular hypertrophy. The left ventricular systolic function is grossly normal on limited imaging. RIGHT VENTRICLE Normal right ventricular size and systolic function. LEFT ATRIUM The left atrial size is normal. RIGHT ATRIUM The right atrial size is normal. ATRIAL SEPTUM No atrial level shunt is demonstrated by color flow Doppler interrogation. AORTA The aortic root and proximal ascending aorta are normal in size on limited imaging. MITRAL VALVE Mitral annular calcification is present. AORTIC VALVE Trileaflet aortic valve. No aortic valve stenosis or regurgitation. TRICUSPID VALVE There is mild tricuspid valve regurgitation. The estimated pulmonary arterial pressure is 56.8 mmHg. PULMONARY VALVE Trivial pulmonary valve regurgitation. VESSELS The inferior vena cava is normal in size. PERICARDIUM A prominent epicardial fat pad is present. No pericardial effusion. Jose Daniel Ang MD, FACC, [facility] [place] (Electronically Signed) Final Date:09 October 2018 17:14
== END 2018-10-09 13:55 | disposition home or self-care (01) ==
LOC: NEPE 16:38 → NEDA 16:38 → NEPHCDU 22:11 → NEDA 22:11
PROVIDERS: ADMIT Family Medicine; ATTEND Family Medicine
DX: Z88.2 Allergy status to sulfonamides; J98.11 Atelectasis; H02.401 Unspecified ptosis of right eyelid; F17.210 Nicotine dependence, cigarettes, uncomplicated; F02.80 Dementia in other diseases classified elsewhere, unspecified severity, without behavioral disturbance, psychotic disturbance, mood disturbance, and anxiety; G62.9 Polyneuropathy, unspecified; Z82.49 Family history of ischemic heart disease and other diseases of the circulatory system; G30.9 Alzheimer's disease, unspecified; H57.04 Mydriasis; N17.9 Acute kidney failure, unspecified; G52.9 Cranial nerve disorder, unspecified; H57.02 Anisocoria; I48.91 Unspecified atrial fibrillation; H49.01 Third [oculomotor] nerve palsy, right eye; I10 Essential (primary) hypertension; C19 Malignant neoplasm of rectosigmoid junction; C44.90 Unspecified malignant neoplasm of skin, unspecified
CPT/HCPCS: 70450; 70544; 70551; 71010; 71045; 71250; 80053; 80061; 81001; 82948; 82962; 83036; 84484; 85025; 85610; 85730; 87086; 90772; 90782; 92610; 93005; 93306; 93880; 96372; 99285; C9204; G0195; G0378; G8996; G8997; G8998; J1644; J2060; J3486; J7030